=== PATIENT | female | born 1995 | race Two or more races ===

== ENCOUNTER → 2016-07-01 | Emergency (ER) | payer SELFPAY ==
[2016-07-01 00:23] VITALS: BP 130/73; PULSE 90; RESP 18; TEMP 97.7; O2SAT 93
--- NOTE | 2016-07-01 00:33 | EDPHY ---
H & P Stated Complaint: pt says someone fell on her and thinks she broke L 3rd finger Time Seen by Provider: 07/01/16 00:24 HPI/ROS: HPI The patient presents with left middle finger injury which occurred about 20 minutes prior to presentation. She was at a [employer] and someone fell on her, she fell to the ground and her fingers hit the ground. There is an obvious deformity of her right middle finger. She does not have any numbness or tingling. She has moderate achy pain throughout the finger. REVIEW OF SYSTEMS Constitutional: No fever, no chills. Eyes: No discharge. Skin: No rashes. Neurological: No headache. PMHx: Healthy, no diabetes, no hypertension Soc Hx: Alcohol use PHYSICAL General Appearance: Alert, no distress Eyes: Pupils equal and round no pallor or injection ENT, Mouth: Mucous membranes moist Respiratory: Breathing comfortably Neurological: A&O, moves all extremities Skin: Warm and dry, no rashes Musculoskeletal: Neck is supple non tender Extremities: Left middle finger with obvious deformity at PIP joint, sensation intact to light touch, tender throughout Psychiatric: Patient is oriented X 3, there is no agitation Source: Patient Exam Limitations: No limitations - Medical/Surgical History Hx Asthma: No Hx Chronic Respiratory Disease: No Hx Diabetes: No Hx Cardiac Disease: No Hx Renal Disease: No Hx Cirrhosis: No Hx Alcoholism: No Hx HIV/AIDS: No Hx Splenectomy or Spleen Trauma: No Other PMH: none - Social History Smoking Status: Former smoker Constitutional: Initial Vital Signs Temperature (C) 36.5 C 07/01/16 00:19 Heart Rate 90 07/01/16 00:19 Respiratory Rate 18 07/01/16 00:19 Blood Pressure 130/73 H 07/01/16 00:19 O2 Sat (%) 93 07/01/16 00:19 O2 Delivery Mode Room Air Allergies/Adverse Reactions: No Known Allergies Allergy (Unverified 07/01/16 00:22) Home Medications: Medication Instructions Recorded NK [No Known Home Meds] 07/01/16 Medical Decision Making - Diagnostics Imaging: X-ray right hand three views shows dislocation of the middle finger PIP joint with possible small avulsion fracture of the distal portion of the proximal phalanx, interpreted by me, radiology interpretation pending. Procedures: REDUCTION Procedure: Dislocation reduction. Indication: Dislocation The right middle finger PIP joint was reduced in the usual fashion without complications. Post reduction the patient's neurovascular exam is normal. The patient is able to move the finger without difficulty. The procedure was performed by myself. SPLINT Procedure: Splint placement. A foam and metal finger splint was applied to the right middle finger by the tech. After application of the splint I returned and re-examined the patient. The splint was adequately immobilizing the joint and distal to the splint the patient's circulation and sensation was intact. Differential Diagnosis: This is a healthy 20-year-old female who sustained a left middle finger injury just prior to arrival after she fell onto her hand. Differential diagnosis includes finger dislocation, finger fracture, finger sprain. Departure - Departure Disposition: Home, Routine, Self-Care Clinical Impression: Finger dislocation, Fracture of proximal phalanx of digit of left hand Condition: Good Instructions: Finger Dislocation (ED) Additional Instructions: You may have a very small fracture of your finger. You should wear this splint for the next 1 week, or until your evaluated by the hand specialist. Please use ice as needed for pain. Referrals: Azar Patiño MD [Medical Doctor] - As per Instructions
--- NOTE | 2016-07-01 09:09 | DX ---
Left Third Finger, Three Views History: Pain, swelling, and deformity. Findings: There is posterior dislocation of the middle phalanx to the proximal phalanx of the left th ird finger. Avulsion fracture is seen from the volar base of the middle phalanx, displaced to the uln ar side and proximally. Soft tissue swelling at the PIP joint. Normal underlying mineralization. Impression: Dislocation of the third PIP joint with a displaced avulsion fracture from the volar base of the third middle phalanx.
== END | disposition home or self-care (01) ==
PROC: 0RSXXZZ Reposition Left Finger Phalangeal Joint, External Approach (ICD-10-PCS; principal; 2016-07-01)
DX: S62.613A Displaced fracture of proximal phalanx of left middle finger, initial encounter for closed fracture (principal); S63.283A Dislocation of proximal interphalangeal joint of left middle finger, initial encounter; Z87.891 Personal history of nicotine dependence; W03.XXXA Other fall on same level due to collision with another person, initial encounter; Y92.89 Other specified places as the place of occurrence of the external cause
CPT/HCPCS: L3925